=== PATIENT | male | born 1990 | race Caucasian/White ===

== ENCOUNTER 2022-01-29 01:30 | Emergency (ER) | payer MEDICAID ==
[~2022-01-29] VITALS: Ht 175.3 cm; Wt 68.0 kg
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
[2022-01-29] MEDS ORDERED: HYDR-4209 PO (02:59)
[2022-01-29] MEDS ORDERED: IBUPROFEN 600 MG TABLET PO ONE (03:00)
[2022-01-29] MEDS ORDERED: HYDROCODONE/APAP 5/325MG TABLET PO ONE (03:00)
[2022-01-29] MEDS ORDERED: IBUPROFEN 600 MG TABLET ONE (03:08)
[2022-01-29] MEDS ORDERED: HYDROCODONE/APAP 5/325MG TABLET ONE (03:08)
--- NOTE | 2022-01-29 03:13 | NUR ---
Patient discharged to home in stable condition. Written and verbal after care instructions given. Patient verbalizes understanding of instruction.
[2022-01-29 03:26] VITALS: BP 127/84
== END 2022-01-29 03:15 | disposition home or self-care (01) ==
LOC: ER 01:34
DX: M79.10 Myalgia, unspecified site (principal); Z79.891 Long term (current) use of opiate analgesic; V99.XXXA Unspecified transport accident, initial encounter; Y93.89 Activity, other specified; Y92.89 Other specified places as the place of occurrence of the external cause; Y99.8 Other external cause status